=== PATIENT | female | born 1950 | race Hispanic/Latino ===

== ENCOUNTER 2023-11-14 07:17 | Outpatient (CLI) | payer BC, MEDICARE | END 2023-11-14 07:18 | disposition home or self-care (01) | LOC: NM 07:17 | PROVIDERS: ATTEND Specialist | DX: M17.0 Bilateral primary osteoarthritis of knee (principal); T84.84XA Pain due to internal orthopedic prosthetic devices, implants and grafts, initial encounter; Z96.652 Presence of left artificial knee joint | CPT/HCPCS: 78315; A9503 ==